=== PATIENT | female | born 1960 | race Caucasian/White ===

== ENCOUNTER 2017-01-08 12:48 | Emergency (ER) | payer BC, MEDICARE ==
[~2017-01-08] VITALS: Ht 167.6 cm; Wt 59.9 kg
[2017-01-08] MEDS ORDERED: DORZOLAMIDE HYD10 M2 OP (13:04)
[2017-01-08] MEDS ORDERED: VENLAFAXINE HY150 M2 PO (13:04)
[2017-01-08] MEDS ORDERED: GILENYA0.5 M1 PO (13:04)
[2017-01-08] MEDS ORDERED: LATANOPROST2.5 ML OP (13:05)
[2017-01-08] MEDS ORDERED: NITROFURANTOIN50 M2 PO (13:05)
[2017-01-08] MEDS ORDERED: FLUTICASON0.05 MG/AC NAS (13:05)
[2017-01-08] MEDS ORDERED: VIMPAT100 MG PO (13:05)
[2017-01-08] MEDS ORDERED: CALCIUM 500 +1 EAC3 PO (13:06)
[2017-01-08] MEDS ORDERED: FISH OIL 1,2001 EACH PO (13:08)
[2017-01-08] MEDS ORDERED: CENTRUM SILVER1 EAC1 PO (13:08)
[2017-01-08] MEDS ORDERED: VITAMIN B121000 MC1 PO (13:08)
[2017-01-08] MEDS ORDERED: VITAMIN B-6250 MG PO (13:09)
[2017-01-08] MEDS ORDERED: PROBIOTIC1 EACH PO (13:09)
[2017-01-08] MEDS ORDERED: MIRALAX POWDER255 G1 PO (13:10)
[2017-01-08] MEDS ORDERED: VITAMIN D32000 UNI1 PO (13:10)
== END 2017-01-08 16:47 | disposition home or self-care (01) ==
LOC: ED 12:48
DX: S01.01XA Laceration without foreign body of scalp, initial encounter (principal); S09.90XA Unspecified injury of head, initial encounter; Z98.890 Other specified postprocedural states; Z79.899 Other long term (current) drug therapy; W18.09XA Striking against other object with subsequent fall, initial encounter; Y93.89 Activity, other specified; Y92.89 Other specified places as the place of occurrence of the external cause; Y99.9 Unspecified external cause status